=== PATIENT | male | born 1985 | race Two or more races ===

== ENCOUNTER 2024-01-28 20:36 | Emergency (ER) | payer MEDICAID, SELFPAY ==
[~2024-01-28] VITALS: Ht 185.4 cm; Wt 88.6 kg
[~2024-01-28 20:36] MED LIST: CYCL-1 PO
[2024-01-28 20:47] VITALS: TEMP 97.3
[2024-01-29] MEDS: ibuprofen tablet 400 MG TABLET PO ONE (00:56)
[2024-01-29] MEDS: acetaminophen 325mg tablet PO ONE (00:56)
[2024-01-29 01:09] VITALS: BP 122/74; PULSE 71; RESP 14; O2SAT 100
== END 2024-01-29 01:15 | disposition home or self-care (01) ==
LOC: ER 20:36
DX: M79.604 Pain in right leg (principal); Z72.89 Other problems related to lifestyle; Z79.899 Other long term (current) drug therapy
CPT/HCPCS: 93971; 99284